=== PATIENT | female | born 1995 | race African-American/Black ===

== ENCOUNTER 2016-12-18 10:54 | Inpatient (IN) ==
[2016-12-18] MEDS ORDERED: ZOFRAN IV PRN (20:27)
[2016-12-18] MEDS ORDERED: PEPCID IV PRN (20:27)
[2016-12-18] MEDS ORDERED: CYTOTEC PO ONE (20:27)
[2016-12-18] MEDS ORDERED: AMBIEN PO PRN (20:27)
[2016-12-18] MEDS ORDERED: PITOCIN 30 UNITS/LR 30 UNITS/500 ML IV.SOLN IV SCH (20:27)
[2016-12-18] MEDS ORDERED: TYLENOL PO PRN (20:27)
[2016-12-18] MEDS ORDERED: STADOL IV PRN ×3 (20:27)
[2016-12-18] MEDS ORDERED: PEPCID PO PRN (20:27)
[2016-12-18] MEDS ORDERED: BRETHINE SUBQ PRN (20:27)
[2016-12-18] MEDS ORDERED: KEFZOL 1 GM/D5W 1 GM/50 ML IVPB IV PRN (20:27)
[2016-12-18] MEDS: LR 1,000 ML IV ONE (21:05)
[2016-12-18] MEDS ORDERED: CYTOTEC ONE (22:38)
[2016-12-18 23:12] LABS: MANUAL DIFF NEEDED? NO
[2016-12-18 23:13] LABS: BASO% 0.1 % (0.0-0.8); EOS# 0.15 X1000 (0.0-0.7); EOS% 1.7 % (0.0-10.0); HEMATOCRIT 38.9 % (37.0-47.0); HEMOGLOBIN 12.9 g/dL (12.0-16.0); IMM GRAN# 0.05 X1000 (0.0-0.04); IMM GRAN% 0.6 % (0.0-0.5); LYMPH# 2.25 X1000 (1.2-3.4); LYMPH% 26.1 % (20.5-51.1); MCH 28.7 PG (27-31); MCHC 33.2 g/dL (33-37); MCV 86.6 FL (81-99); MONO# 0.69 X1000 (0.11-0.59); MPV 11.7 FL (7.4-10.4); NEUT% 63.5 % (42.2-75.2); PLT 191 X1000 (130-400); RBC 4.49 XMIL (4.2-5.4)
[2016-12-19] MEDS ORDERED: CYTOTEC PO SCH (00:27)
[2016-12-19] MEDS ORDERED: FENTANYL-BUPIV-NS 2 MCG-0.1% 200 ML EPIDURAL PRN (07:18)
[2016-12-19] MEDS: LR 1,000 ML IV ONE (07:38)
[2016-12-19] MEDS ORDERED: XYLOCAINE-MPF 1% 5 ML ONE (08:17)
[2016-12-19] MEDS ORDERED: XYLOCAINE-MPF 1% ONE (08:17)
[2016-12-19] MEDS ORDERED: MINERAL OIL ONE (08:18)
[2016-12-19] MEDS ORDERED: BICITRA PO ONE (15:45)
[2016-12-19] MEDS ORDERED: PEPCID IV ONE (15:45)
[2016-12-19] MEDS ORDERED: CLINDAMYCIN 900 MG/NS 900 MG/50 ML IVPB IV ONE (15:47)
[2016-12-19] MEDS ORDERED: VERSED ONE (16:02)
[2016-12-19] MEDS ORDERED: DURAMORPH ONE (16:02)
[2016-12-19] MEDS ORDERED: FENTANYL ONE (16:02)
--- NOTE | 2016-12-19 16:21 | HISTORY AND PHYSICAL ---
PREOPERATIVE DIAGNOSES: 1. Intrauterine at 40 weeks and 3 days. 2. Nonreassuring heart tones. 3. Arrest of descent. CONDITION: Stable. HISTORY OF PRESENT ILLNESS: Ms. Orta is a 21-year-old primigravida with estimated date of delivery of 12/16, who was admitted last night for Cytotec, and this morning she was ruptured. She has been on Pitocin. Received epidural anesthesia. She has advanced to 6-7 cm dilated, however baby has not progressed past -3, and areas of some developing caput. Also concerning is the baby's heart tones are decelerating in the presence of higher doses of Pitocin and currently the Pitocin is off with still some heart rate decelerations. I have discussed the situation with patient and family and we have decided to proceed with a delivery. Ms. Orta has had uncomplicated course, O positive blood type, hepatitis B negative, RPR nonreactive, HIV negative, rubella immune. She did get the Tdap. Her glucose tolerance was normal. Her GBS was negative. PAST MEDICAL HISTORY: Negative. PAST SURGICAL HISTORY: Negative. ALLERGIES: She has no known drug allergies. MEDICATIONS: She is on vitamins. SOCIAL HISTORY: She denies tobacco, alcohol, or drug use. FAMILY HISTORY: Noncontributory. PHYSICAL EXAMINATION: VITAL SIGNS: Are stable, afebrile. GENERAL APPEARANCE: She is alert, cooperative. NECK: Supple. LUNGS: Clear. HEART: Regular sinus rhythm. ABDOMEN: Gravid. ASSESSMENT/PLAN: Cervix 6, 90%, -3 station. No cyanosis, clubbing, edema in her extremities. She does have an epidural in place. heart tones. She is decelerating with contractions with late returns. So we will proceed with the above diagnosis. cc: Hugo Harmon MD
[2016-12-19] MEDS ORDERED: XYLOCAINE-MPF 2% ONE (16:45)
[2016-12-19] MEDS ORDERED: PITOCIN ONE (16:45)
[2016-12-19] MEDS ORDERED: NEO-SYNEPHRINE ONE (16:45)
[2016-12-19] MEDS ORDERED: ROBINUL ONE ×2 (16:45→16:48)
[2016-12-19] MEDS ORDERED: ZOFRAN ONE (16:45)
[2016-12-19] MEDS ORDERED: M-M-R II VACCINE SUBQ ONE (16:54)
[2016-12-19] MEDS ORDERED: DULCOLAX PR PRN (16:54)
[2016-12-19] MEDS ORDERED: NORCO-5 PO PRN (16:54)
[2016-12-19] MEDS ORDERED: MYLICON PO PRN (16:54)
[2016-12-19] MEDS ORDERED: BOOSTRIX VACCINE IM ONE (16:54)
[2016-12-19] MEDS ORDERED: PITOCIN 20 UNITS/LR 20 UNITS/1,000 ML IV.SOLN IV ONE (16:54)
[2016-12-19] MEDS ORDERED: DEMEROL IM PRN (16:54)
[2016-12-19] MEDS ORDERED: PITOCIN 10 UNITS/LR 10 UNIT/1,000 ML IV.SOLN IV SCH (16:54)
[2016-12-19] MEDS ORDERED: PHENERGAN IM PRN (16:54)
[2016-12-19] MEDS ORDERED: AMBIEN PO PRN (16:54)
[2016-12-19] MEDS ORDERED: HYDROXYZINE IM PRN (16:54)
[2016-12-19] MEDS ORDERED: DEMEROL PO PRN ×2 (16:54)
[2016-12-19] MEDS ORDERED: HYDROXYZINE PO PRN (16:54)
[2016-12-19] MEDS ORDERED: CYTOTEC PO PRN (16:54)
[2016-12-19] MEDS ORDERED: PITOCIN IM PRN (16:54)
[2016-12-19] MEDS ORDERED: NARCAN INJ PRN (17:15)
[2016-12-19] MEDS ORDERED: ZOFRAN ODT PO PRN (17:15)
[2016-12-19] MEDS ORDERED: BENADRYL IV PRN (17:15)
[2016-12-19] MEDS ORDERED: ZOFRAN IV PRN ×2 (17:15)
[2016-12-19] MEDS ORDERED: MORPHINE IV PRN (17:16)
--- NOTE | 2016-12-19 17:29 | OPERATIVE NOTE ---
PROCEDURE DATE: 12/19/2016 PREOPERATIVE DIAGNOSES: 1. Intrauterine at 40 weeks and 3 days. 2. Arrestive descent. 3. Nonreassuring heart tones. POSTOPERATIVE DIAGNOSES: 1. Intrauterine at 40 weeks and 3 days. 2. Arrestive descent. 3. Nonreassuring heart tones. 4. Occiput posterior presentation. 5. Thick meconium. PROCEDURE: Primary low transverse section. PHYSICIAN: Dr. Hugo Harmon. ANESTHESIA: Epidural by FINDINGS: Viable female , 6 pounds 1 ounce, 8 and 9 Apgars. There was thick meconium noted. ESTIMATED BLOOD LOSS: Was 600 mL. There were no complications. DRAINS: Doll catheter. No pathology. Please refer to Ms. Orta's records and [facility]. She was brought to the operating room where epidural anesthesia was verified to the T10 level. She was then prepped and draped in a sterile fashion. It should be noted a Doll catheter was already in place. Adequate anesthesia was verified to the T10 level and a Pfannenstiel skin incision was made across the lower abdomen through the subcuticular tissue to the fascia. The fascia was nicked in the midline. Then the cut on the fascia was extended laterally with the curved Pike's. Muscle was then pulled to the side and peritoneum was entered bluntly and a bladder blade was placed and a hysterotomy incision was made in the lower uterine segment in the midline, then extended laterally by pulling cephalad and caudad. Thick meconium was noted. The was elevated out of the pelvis and delivered occiput posterior. Shoulders followed easily as did rest of the body. Cord was doubly clamped and cut. Care of was then taken over by nursery personnel. Cord blood was obtained. Uterus was massaged to deliver the placenta, which delivered intact. Uterus was then exteriorized and wiped free of clots and remaining placental tissue. Hysterotomy incision was closed in 2 layers with 0 Vicryl running and locking layer #1 and then an imbricating layer #2. There was still small amount of oozing noted. So the uterus was placed back into the abdomen. Irrigation was done. Fundus, tubes and ovaries were normal. Gelfoam was placed against the uterine incision and the peritoneum was closed with 0 chromic. Muscle was plicated in the midline with same 0 chromic. Fascia was reapproximated with 0 Polysorb in a running intermittently locking stitch. Subcu tissue was irrigated and made hemostatic by electrocautery. Abigail's fascia was closed with 3-0 chromic and skin was closed with 4-0 Biosyn in a subcuticular stitch. All counts were correct and patient was taken back to her room to recover. Expect routine and postoperative course. cc: Hugo Harmon MD
[2016-12-19] MEDS: PERICOLACE PO SCH (20:54)
[2016-12-19] MEDS: MYLICON PO SCH (20:55)
[2016-12-20] MEDS: TORADOL IV SCH ×2 (05:09)
[2016-12-20 06:55] LABS: BASO% 0.1 % (0.0-0.8); EOS# 0.04 X1000 (0.0-0.7); EOS% 0.3 % (0.0-10.0); HEMATOCRIT 30.6 % (37.0-47.0); HEMOGLOBIN 10.1 g/dL (12.0-16.0); IMM GRAN# 0.03 X1000 (0.0-0.04); IMM GRAN% 0.3 % (0.0-0.5); LYMPH# 0.89 X1000 (1.2-3.4); LYMPH% 7.8 % (20.5-51.1); MANUAL DIFF NEEDED? YES; MCH 28.8 PG (27-31); MCV 87.2 FL (81-99); MONO# 0.68 X1000 (0.11-0.59); MONO% 5.9 % (1.7-9.3); MPV 11.7 FL (7.4-10.4); NEUT% 85.6 % (42.2-75.2); PLT 153 X1000 (130-400); RBC 3.51 XMIL (4.2-5.4)
[2016-12-20 07:46] LABS: LYMPHS 9 % (21-51); MONO 6 % (1-9)
[2016-12-20] MEDS: MYLICON PO SCH ×4 (08:29→20:41)
[2016-12-20] MEDS: PRECARE PO SCH (08:29)
[2016-12-20] MEDS: NORCO-10 PO PRN ×3 (08:30→20:41)
[2016-12-20] MEDS: MOTRIN PO PRN ×2 (13:37→20:41)
[2016-12-20] MEDS ORDERED: LR 1,000 ML IV SCH (15:51)
[2016-12-20] MEDS: PERICOLACE PO SCH (20:41)
[2016-12-21] MEDS: NORCO-10 PO PRN (06:41)
[2016-12-21] MEDS: MOTRIN PO PRN (06:42)
--- NOTE | 2016-12-21 07:33 | DISCHARGE SUMMARY ---
ADMISSION DATE: 12/18/2016 DISCHARGE DATE: 12/21/2016 PRINCIPAL DIAGNOSIS: Intrauterine . SECONDARY DIAGNOSIS: Arrest of descent, nonreassuring status. PRINCIPAL PROCEDURE: Primary low transverse section. HOSPITAL COURSE: Patient was admitted on 12/18/2016 for scheduled induction of labor secondary to arrest of descent and nonreassuring status. The patient was taken back for a primary low transverse section. Procedure was performed without complications. The patient was subsequently transferred to mother/baby where her postoperative course remained uneventful. The patient notes lochia less than menses. Her pain is well controlled on p.o. pain medications. The patient has no nausea or vomiting. The patient has been slightly tachycardic. However, no obvious source or symptoms for tachycardia. The patient states she is ready to be discharged home on postoperative day #2. CONDITION ON DISCHARGE: Stable. ELIMINATION CAPACITY: Independent. FEEDING CAPACITY: Independent. LOCOMOTION CAPACITY: Independent. REHAB POTENTIAL: Good. PROGNOSIS: Good. DISCHARGE MEDICATIONS: Include [place] 10 mg 1 tablet p.o. q.6 hours p.r.n. pain. DISCHARGE INSTRUCTIONS: The patient is to maintain a regular diet. Physical activity as tolerated. Patient is to maintain pelvic rest x6 weeks. The patient is ordered to call or return if fever greater than 100.4, heavy vaginal bleeding, foul smelling vaginal discharge, or any other acute changes. She is to be discharged home with orders to follow up with Dr. Harmon in 1 week for incision check, sooner if needed. cc: MD Hugo Braden MD
[2016-12-21 08:01] VITALS: BP 130/66
[2016-12-21] MEDS: MYLICON PO SCH (08:46)
[2016-12-21] MEDS: PRECARE PO SCH (08:46)
== END 2016-12-21 11:35 | disposition home or self-care (01) ==
LOC: P.LD 20:25 → P.WC 12-19 20:59
PROVIDERS: ADMIT Obstetrics & Gynecology; ATTEND Obstetrics & Gynecology